=== PATIENT | female | born 1985 | race African-American/Black ===

== ENCOUNTER 2018-06-04 16:28 | Emergency (ER) | payer SELFPAY ==
[~2018-06-04] VITALS: Ht 177.8 cm; Wt 100.0 kg
[2018-06-04] MEDS ORDERED: IBUPROFEN 600MG TABLET PO ONE (19:15)
[2018-06-04 20:19] VITALS: BP 136/66
== END 2018-06-04 20:21 | disposition home or self-care (01) ==
LOC: ER 16:28
DX: M79.672 Pain in left foot (principal); M72.2 Plantar fascial fibromatosis; J45.909 Unspecified asthma, uncomplicated; F17.200 Nicotine dependence, unspecified, uncomplicated; Z98.890 Other specified postprocedural states
CPT/HCPCS: 73620; 99283

== ENCOUNTER 2018-08-14 17:32 | Emergency (ER) | payer SELFPAY ==
[~2018-08-14] VITALS: Ht 177.8 cm; Wt 104.0 kg
[2018-08-14] MEDS ORDERED: ALBUTEROL (0.083%) 2.5MG/3ML NEB HHN ONE (22:45)
[2018-08-14] MEDS ORDERED: TRAMADOL 50MG TABLET PO ONE (22:45)
[2018-08-15 00:24] VITALS: BP 128/66
== END 2018-08-15 00:28 | disposition home or self-care (01) ==
LOC: ER 17:32
DX: S30.0XXA Contusion of lower back and pelvis, initial encounter (principal); J45.909 Unspecified asthma, uncomplicated; M72.2 Plantar fascial fibromatosis; M79.671 Pain in right foot; M79.672 Pain in left foot; V89.2XXA Person injured in unspecified motor-vehicle accident, traffic, initial encounter; Y93.89 Activity, other specified; Y92.89 Other specified places as the place of occurrence of the external cause; Y99.8 Other external cause status
CPT/HCPCS: 71111; 81025; 94640; 99283; J7611

== ENCOUNTER 2023-09-20 11:30 | Emergency (ER) | payer MEDICAID ==
[~2023-09-20] VITALS: Ht 175.3 cm; Wt 93.0 kg
[2023-09-20] MEDS ORDERED: IBUP-2029 MT (14:10)
[2023-09-20] MEDS ORDERED: DICL50TA9 MT (14:11)
[2023-09-20 14:31] VITALS: BP 132/81; PULSE 88; RESP 16; TEMP 98.6; O2SAT 100
== END 2023-09-20 17:00 | disposition home or self-care (01) ==
LOC: ER 12:40
DX: M25.561 Pain in right knee (principal); J45.909 Unspecified asthma, uncomplicated
CPT/HCPCS: 99283; Z7610